=== PATIENT | female | born 1990 ===

== ENCOUNTER → 2018-02-21 | Outpatient (CLI) | payer OTHER | END | disposition home or self-care (01) | LOC: LAB 18:25 → LAB SHORT 18:25 | DX: Z34.00 Encounter for supervision of normal first pregnancy, unspecified trimester (principal) | CPT/HCPCS: 87081; 87653 ==

== ENCOUNTER → 2019-12-25 | Outpatient (CLI) | payer OTHER ==
[~2019-12-25] MED LIST: ACET325 PO; FLONASE ALLERG9.9 ML INH; IBUP800; Verotin-Gr Cap1 EACH PO
[2019-12-25 15:49] LABS: Appearance, Urine Clear (Clear); Bilirubin, Urine Neg (Neg); Blood, Urine Neg (Neg); Color, Urine Yellow (P-Yellow); Glucose Qualitative, Urine Neg (Neg); Ketones, Urine Neg (Neg); Leukocyte Esterase, Urine Neg (Neg); Nitrite, Urine Neg (Neg); Protein, Urine Neg (Neg); Urobilinogen, Urine NORM (Normal)
== END ==
LOC: LAB SHORT 14:41 → LAB 14:41
PROVIDERS: Obstetrics & Gynecology
DX: Z34.81 Encounter for supervision of other normal pregnancy, first trimester (principal)
CPT/HCPCS: 81003; 87086

== ENCOUNTER → 2020-07-09 | Outpatient (CLI) | payer OTHER | END | disposition home or self-care (01) | LOC: LAB SHORT 14:58 → LAB 14:58 | DX: Z34.83 Encounter for supervision of other normal pregnancy, third trimester (principal) | CPT/HCPCS: 87081; 87653 ==

== ENCOUNTER 2020-07-24 10:39 | Inpatient (IN) | payer OTHER ==
[~2020-07-24] VITALS: Ht 167.6 cm; Wt 91.2 kg
[2020-07-28 08:37] LABS: BASOPHILS ABSOLUTE AUTO 0.03 K/mm3 (0.00-0.23); BASOPHILS PERCENT AUTO 0 % (0-2); EOSINOPHILS ABSOLUTE AUTO 0.03 K/mm3 (0.00-0.68); EOSINOPHILS PERCENT AUTO 0 % (0-6); Hematocrit 38.9 % (33.0-51.0); Hemoglobin 12.7 g/dL (11.5-16.0); IMMATURE GRAN ABSOLUTE AUTO 0.08 K/mm3 (0.00-0.10); IMMATURE GRAN PERCENT AUTO 1 % (0-1); LYMPHOCYTES PERCENT AUTO 18 % (21-46); MONOCYTES ABSOLUTE AUTO 0.62 K/mm3 (0.16-1.47); MONOCYTES PERCENT AUTO 5 % (4-13); Mean Corpuscular HGB 29.3 pg (26.0-34.0); Mean Corpuscular HGB Conc 32.6 g/dL (31.5-36.5); Mean Corpuscular Volume 90 fL (80-100); Mean Platelet Volume 10.7 fL (9.1-12.4); NEUTROPHILS ABSOLUTE AUTO 9.49 K/mm3 (1.96-9.15); NEUTROPHILS PERCENT AUTO 76 % (41-73); Platelet Count 182 K/mm3 (150-400); RDW Coefficient Variation 13.7 % (11.7-14.2); Red Blood Cell Count 4.34 M/mm3 (3.80-5.20); White Blood Cell Count 12.55 K/mm3 (4.00-11.30)
--- NOTE | 2020-07-28 10:49 | NUR ---
07/28/20 1049 Eleonora Baugh DELIVERY OF VIABLE MALE AT 1024. WEIGHT 3775 GMS. APGARS 9/9. MANUAL DELIVERY OF PLACENTA COMPLETE. CORD BLOOD SAMPLE SENT WITH Hill CHARLES RN FOR BLOOD TYPING NEEDED.
[2020-07-29 06:08] LABS: Hematocrit 34.2 % (33.0-51.0); Hemoglobin 10.9 g/dL (11.5-16.0); Mean Corpuscular HGB 29.2 pg (26.0-34.0); Mean Corpuscular HGB Conc 31.9 g/dL (31.5-36.5); Mean Corpuscular Volume 92 fL (80-100); Platelet Count 154 K/mm3 (150-400); RDW Coefficient Variation 14.1 % (11.7-14.2); RDW Standard Deviation 47.2 fL (35.1-46.3); Red Blood Cell Count 3.73 M/mm3 (3.80-5.20)
--- NOTE | 2020-07-29 06:28 | NUR ---
PT ATTEMPTED SHOWER AT 0600. PT TWO PERSON ASSIST TO BATHROOM. PT VOIDED BUT UNABLE TO TAKE SHOWER DUE TO FEELING LIGHTHEADED. LINENS CHANGED AND PT BACK TO BED. WILL TRY SHOWER ATTEMPT LATER IN THE MORNING TODAY.
--- NOTE | 2020-07-29 16:37 | NUR ---
RN ROUNDED TO HELP W/ . 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 FURTHER SUPPORT OFFERED IF PT DESIRES. MOM AND DAD LOVING W/ NB AND EACH OTHER, BOTH DENY ANY FURTHER QUESTIONS OR CONCERNS.
[2020-07-30] MEDS ORDERED: IBUP800 PO (08:49)
[2020-07-30] MEDS ORDERED: Percocet 5-3251 EACH PO (08:50)
== END 2020-07-30 10:00 | disposition home or self-care (01) | DRG 788 ==
LOC: BC 07-28 07:48
PROVIDERS: ADMIT Obstetrics & Gynecology
PROC: 10D00Z1 Extraction of Products of Conception, Low, Open Approach (ICD-10-PCS; principal; 2020-07-28 09:30)
DX: O32.1XX0 Maternal care for breech presentation, not applicable or unspecified (principal); O69.1XX0 Labor and delivery complicated by cord around neck, with compression, not applicable or unspecified; Z3A.39 39 weeks gestation of pregnancy; Z37.0 Single live birth
CPT/HCPCS: 36415; 85025; 85027; 86900; 86901; A9270; J0690; J1885; J2210; J2370; J2405; J2590; J2765; J3010; J7120; Q2038

== ENCOUNTER → 2021-06-04 | Outpatient (CLI) | payer OTHER ==
[~2021-06-04] MED LIST changes: +IBUP800 PO; +Percocet 5-3251 EACH PO
== END | disposition home or self-care (01) ==
LOC: LAB 14:40 → LAB SHORT 14:40
PROVIDERS: Obstetrics & Gynecology
DX: Z01.419 Encounter for gynecological examination (general) (routine) without abnormal findings (principal)
CPT/HCPCS: G0123

== ENCOUNTER → 2025-02-11 | Outpatient (CLI) | payer OTHER ==
[2025-02-19 14:48] LABS: HPV HIGH RISK BY TMA Not Detected; HPV SOURCE Vaginal
== END ==
LOC: LAB 10:25 → LAB SHORT 10:25
PROVIDERS: Obstetrics & Gynecology
DX: Z01.419 Encounter for gynecological examination (general) (routine) without abnormal findings (principal)
CPT/HCPCS: 87624; G0123

== ENCOUNTER 2025-07-25 22:56 | Inpatient (IN) | payer OTHER ==
[~2025-07-25] VITALS: Ht 167.6 cm; Wt 92.7 kg
[2025-07-25] MEDS ORDERED: Methylergonovine Maleate 0.2MG / ML 1ML Amp IM PRN (23:30)
[2025-07-25] MEDS ORDERED: Carboprost Tromethamine 250 MCG/ML 1ML Amp IM PRN (23:30)
[2025-07-25] MEDS ORDERED: FentaNYL 2mcg/ml-Bup 0.1% Epd 250 ML EPI PRN (23:30)
[2025-07-25] MEDS ORDERED: Tranexamic Acid 100 ML IV PRN (23:30)
[2025-07-25] MEDS ORDERED: Ondansetron HCl 2 MG / ML 2ML Vial IV PRN (23:30)
[2025-07-25] MEDS ORDERED: ePHEDrine Sulfate 50 MG/ML 1ML Injection XX PRN (23:30)
[2025-07-25] MEDS ORDERED: OXYTOCIN/RINGER'S LACTATE 500 ML IV PRN (23:30)
[2025-07-25] MEDS ORDERED: FentaNYL Citrate 50 MCG/ML 2 ML Injection IV PRN (23:30)
[2025-07-25] MEDS ORDERED: Oxytocin 10 Unit / ML Vial IM PRN (23:30)
[2025-07-25 23:45] VITALS: BP 109/67
[2025-07-25 23:45] LABS: BASOPHILS ABSOLUTE AUTO 0.04 K/mm3 (0.00-0.23); BASOPHILS PERCENT AUTO 0 % (0-2); EOSINOPHILS ABSOLUTE AUTO 0.10 K/mm3 (0.00-0.68); EOSINOPHILS PERCENT AUTO 1 % (0-6); Hematocrit 34.9 % (33.0-51.0); Hemoglobin 11.7 g/dL (11.5-16.0); IMMATURE GRAN ABSOLUTE AUTO 0.19 K/mm3 (0.00-0.10); IMMATURE GRAN PERCENT AUTO 1 % (0-1); LYMPHOCYTES ABSOLUTE AUTO 2.89 K/mm3 (0.84-5.20); LYMPHOCYTES PERCENT AUTO 19 % (21-46); MONOCYTES ABSOLUTE AUTO 0.78 K/mm3 (0.16-1.47); MONOCYTES PERCENT AUTO 5 % (4-13); Mean Corpuscular HGB Conc 33.5 g/dL (31.5-36.5); Mean Corpuscular Volume 87 fL (80-100); NEUTROPHILS ABSOLUTE AUTO 10.98 K/mm3 (1.96-9.15); NEUTROPHILS PERCENT AUTO 73 % (41-73); NRBC ABSOLUTE 0.00 K/mm3 (0.00-0.02); NRBC Auto 0.0 /100 WBC (0.0-0.2); Platelet Count 206 K/mm3 (150-400); RDW Coefficient Variation 13.2 % (11.7-14.2); RDW Standard Deviation 40.9 fL (35.1-46.3)
[2025-07-26] VITALS (33 sets, daily range): BP systolic 98–139; BP diastolic 54–96
[2025-07-26] MEDS ORDERED: Penicillin G Potassium 5,000,000 UNITS in NS 250 ML IV ONE
[2025-07-26] MEDS ORDERED: Penicillin G Potassium 2,500,000 UNITS in Dextrose 5% 100 ML IV SCH (04:00)
[2025-07-26] MEDS ORDERED: OXYTOCIN/RINGER'S LACTATE 500 ML IV SCH ×4 (08:00→23:45)
[2025-07-26] MEDS ORDERED: FentaNYL Citrate 50 MCG/ML 2 ML Injection IV PRN (20:50)
[2025-07-26] MEDS ORDERED: FLU VACC TS2025-26(6MOS UP)/PF 45 MCG/0.5 ML SYRINGE IM SCH (23:40)
[2025-07-26] MEDS ORDERED: Benzocaine Topical Anesthetic Spray 60GM TOP PRN (23:40)
[2025-07-26] MEDS ORDERED: Carboprost Tromethamine 250 MCG/ML 1ML Amp IM PRN (23:40)
[2025-07-26] MEDS ORDERED: Ketorolac Tromethamine 30mg Vial IV PRN (23:45)
[2025-07-26] MEDS ORDERED: Witch Hazel/Glycerin PADS TOP PRN (23:45)
[2025-07-26] MEDS ORDERED: Methylergonovine Maleate 0.2MG / ML 1ML Amp IM PRN (23:45)
[2025-07-27] VITALS (10 sets, daily range): BP systolic 94–116; BP diastolic 52–73
[2025-07-27] MEDS ORDERED: Prenatal Vit/FE Fumarate/FA 1 Tab PO SCH (09:00)
[2025-07-28 04:57] VITALS: BP 118/74
[2025-07-28 07:31] VITALS: BP 110/74
--- NOTE | 2025-07-28 11:07 | NUR ---
DECLINES FLU SHOT
[2025-07-28 11:18] VITALS: BP 114/63
== END 2025-07-28 11:30 | disposition home or self-care (01) | DRG 807 ==
LOC: OBS 22:56 → BC 23:01 → OBS 23:19 → BC 23:20
PROVIDERS: ADMIT Obstetrics & Gynecology
PROC: 10E0XZZ Delivery of Products of Conception, External Approach (ICD-10-PCS; principal; 2025-07-26)
PROC: 10H07YZ Insertion of Other Device into Products of Conception, Via Natural or Artificial Opening (ICD-10-PCS; 2025-07-26)
PROC: 4A1H7CZ Monitoring of Products of Conception, Cardiac Rate, Via Natural or Artificial Opening (ICD-10-PCS; 2025-07-26)
PROC: 10H073Z Insertion of Monitoring Electrode into Products of Conception, Via Natural or Artificial Opening (ICD-10-PCS; 2025-07-26)
PROC: 3E0R3BZ Introduction of Anesthetic Agent into Spinal Canal, Percutaneous Approach (ICD-10-PCS; 2025-07-26)
PROC: 00HU33Z Insertion of Infusion Device into Spinal Canal, Percutaneous Approach (ICD-10-PCS; 2025-07-26)
PROC: 3E03329 Introduction of Other Anti-infective into Peripheral Vein, Percutaneous Approach (ICD-10-PCS; 2025-07-26)
DX: O42.013 Preterm premature rupture of membranes, onset of labor within 24 hours of rupture, third trimester (principal); Z37.0 Single live birth; O34.211 Maternal care for low transverse scar from previous cesarean delivery; Z3A.36 36 weeks gestation of pregnancy; Z79.899 Other long term (current) drug therapy; O28.3 Abnormal ultrasonic finding on antenatal screening of mother; O76 Abnormality in fetal heart rate and rhythm complicating labor and delivery
CPT/HCPCS: 36415; 51702; 85025; 86850; 86900; 86901; 86923; 99214; A9270; J1885; J2405; J2540; J2590; J3010; J7050; J7120

== ENCOUNTER → 2025-07-25 | Outpatient (CLI) | payer OTHER | LOC: LAB 16:00 → LAB SHORT 16:00 | DX: O09.93 Supervision of high risk pregnancy, unspecified, third trimester (principal); Z98.891 History of uterine scar from previous surgery | CPT/HCPCS: 87081; 87150 ==